=== PATIENT | female | born 1970 | race African-American/Black ===

== ENCOUNTER 2022-09-30 18:54 | Inpatient (IN) | payer OTHER ==
[~2022-09-30] VITALS: Ht 162.6 cm; Wt 81.8 kg
[2022-09-30] MEDS ORDERED: 0.9% SODIUM CHLORIDE 10 ML SYRINGE IVP PRN (20:15)
[2022-09-30] MEDS ORDERED: VANCOMYCIN 1GM/WATER(PEG/NADA) 200 ML IV ONE (20:15)
[2022-09-30] MEDS ORDERED: HYDROmorphone HCL 2 MG/ML SYRINGE IVP ONE (20:45)
[2022-09-30 20:48] LABS: BASOPHILS % (AUTO) 0.6 % (0.0-2.0); HEMATOCRIT 44.6 % (36-46); HEMOGLOBIN 14.9 g/dL (12.0-16.0); LYMPHOCYTES # (AUTO) 1.8 K/uL (1.0-4.8); LYMPHOCYTES % (AUTO) 19.8 % (22.0-44.0); MEAN CORPUSCULAR HEMOGLOBIN 30.4 pg (26.0-34.0); MEAN CORPUSCULAR HGB CONC 33.3 G/dL (31.0-37.0); MEAN CORPUSCULAR VOLUME 91 fL (80-100); MONOCYTES # (AUTO) 0.7 K/uL (0.1-1.0); MONOCYTES % (AUTO) 7.8 % (2.0-9.0); NEUTROPHILS # (AUTO) 6.4 K/uL (1.8-7.7); NEUTROPHILS % (AUTO) 69.8 % (40.0-70.0); PLATELET COUNT (AUTO) 199 K/uL (150-450); RED BLOOD CELL COUNT(AUTO) 4.89 MIL/uL (4.00-5.20); RED CELL DISTRIBUTION WIDTH 13.7 % (11.5-14.5)
[2022-09-30 20:59] LABS: ANION GAP 7 mmol/L (8-16); CALCIUM, TOTAL 8.7 mg/dL (8.8-10.5); CARBON DIOXIDE 28 mmol/L (22-29); CHLORIDE 105 mmol/L (98-107); CREATININE 0.69 mg/dL (0.60-1.30); GLUCOSE,RANDOM 94 mg/dL (70-110); POTASSIUM 3.8 mmol/L (3.5-5.1); SODIUM SERUM 140 mmol/L (136-145); UREA NITROGEN, BLOOD 12 mg/dL (7-18)
[2022-09-30 21:00] LABS: GLOMERULAR FILTR. RATE CALC > 60 mL/min (>60)
[2022-09-30] MEDS ORDERED: PIPERACILLIN/TAZO 3.375 GM/D5W 50 ML IV SCH (21:00)
[2022-09-30 21:04] LABS: ALANINE AMINOTRANSFERASE 36 U/L (12-78); ALBUMIN 3.5 g/dL (3.4-5.0); ALKALINE PHOSPHATASE 83 U/L (46-116); ASPARTATE AMINOTRANSFERASE 22 U/L (15-37); BILIRUBIN,TOTAL 0.3 mg/dL (0.1-1.0); TOTAL PROTEIN, SERUM 7.9 g/dL (6.4-8.2)
[2022-09-30 21:05] LABS: COVID AG,FIA SOURCE NASAL SWAB
[2022-09-30 21:08] LABS: LACTIC ACID 0.6 mmol/L (0.4-2.0)
[2022-09-30 21:16] LABS: C-REACTIVE PROTEIN QUANT 4.45 mg/dL (0.00-0.30)
[2022-09-30] MEDS ORDERED: ONDANSETRON HCL 4 MG/2 ML VIAL IVP PRN (21:45)
[2022-09-30] MEDS ORDERED: HYDROCODONE/ACETAMINOPHEN 5-325 MG TABLET PO PRN (21:45)
[2022-09-30] MEDS ORDERED: ACETAMINOPHEN 325 MG TABLET PO PRN (21:45)
[2022-09-30] MEDS: MORPHINE SULFATE 2 MG/ML SYRINGE IVP PRN (22:26)
[2022-09-30 22:52] LABS: ERYTHROCYTE SEDIMENTATION RATE 25 MM/HR (0-20)
[2022-09-30] MEDS: HEPARIN SODIUM,PORCINE 5,000 UNITS/ML VIAL SQ SCH (23:14)
[2022-10-01 00:10] VITALS: BP 150/94
[2022-10-01] MEDS ORDERED: SODIUM CHLORIDE 0.9% 500 ML IV ONE (00:36)
[2022-10-01] MEDS: PIPERACILLIN/TAZO 3.375 GM/D5W 50 ML IV SCH ×4 (01:18→18:06)
[2022-10-01 05:30] VITALS: BP 131/106
[2022-10-01 07:30] LABS: BASOPHILS % (AUTO) 0.9 % (0.0-2.0); EOSINOPHILS % (AUTO) 1.9 % (1.0-6.0); HEMATOCRIT 45.3 % (36-46); HEMOGLOBIN 15.5 g/dL (12.0-16.0); LYMPHOCYTES # (AUTO) 1.6 K/uL (1.0-4.8); LYMPHOCYTES % (AUTO) 19.6 % (22.0-44.0); MEAN CORPUSCULAR HGB CONC 34.3 G/dL (31.0-37.0); MEAN CORPUSCULAR VOLUME 91 fL (80-100); MONOCYTES # (AUTO) 0.7 K/uL (0.1-1.0); MONOCYTES % (AUTO) 8.5 % (2.0-9.0); NEUTROPHILS # (AUTO) 5.6 K/uL (1.8-7.7); NEUTROPHILS % (AUTO) 69.1 % (40.0-70.0); PLATELET COUNT (AUTO) 197 K/uL (150-450); RED BLOOD CELL COUNT(AUTO) 5.01 MIL/uL (4.00-5.20); RED CELL DISTRIBUTION WIDTH 13.7 % (11.5-14.5)
[2022-10-01 07:47] LABS: ANION GAP 10 mmol/L (8-16); CARBON DIOXIDE 25 mmol/L (22-29); CHLORIDE 104 mmol/L (98-107); CREATININE 0.68 mg/dL (0.60-1.30); GLUCOSE,RANDOM 114 mg/dL (70-110); POTASSIUM 4.1 mmol/L (3.5-5.1); SODIUM SERUM 139 mmol/L (136-145); UREA NITROGEN, BLOOD 9 mg/dL (7-18)
[2022-10-01 07:48] LABS: GLOMERULAR FILTR. RATE CALC > 60 mL/min (>60)
[2022-10-01 08:01] VITALS: BP 134/99
[2022-10-01] MEDS: DOCUSATE SODIUM 100 MG CAPSULE PO SCH ×2 (08:30→20:21)
[2022-10-01] MEDS: HEPARIN SODIUM,PORCINE 5,000 UNITS/ML VIAL SQ SCH ×3 (08:32→23:15)
[2022-10-01] MEDS ORDERED: NICOTINE 21 MG/24 HOUR PATCH TD SCH (12:15)
[2022-10-01] MEDS ORDERED: NICOTINE POLACRILEX 2 MG LOZENGE PO PRN (12:15)
[2022-10-01 15:51] VITALS: BP 161/94
[2022-10-01 19:25] VITALS: BP 139/100
[2022-10-02] MEDS: PIPERACILLIN/TAZO 3.375 GM/D5W 50 ML IV SCH ×2 (00:30→06:28)
[2022-10-02 03:16] VITALS: BP 166/92
[2022-10-02] MEDS: MORPHINE SULFATE 2 MG/ML SYRINGE IVP PRN (03:42)
[2022-10-02 06:20] VITALS: BP 189/113
[2022-10-02] MEDS ORDERED: AmLODIPine BESYLATE 5 MG TABLET PO ONE (06:45)
[2022-10-02 08:09] VITALS: BP 133/73
[2022-10-02] MEDS: HEPARIN SODIUM,PORCINE 5,000 UNITS/ML VIAL SQ SCH (08:27)
[2022-10-02] MEDS: DOCUSATE SODIUM 100 MG CAPSULE PO SCH (08:33)
[2022-10-02] MEDS ORDERED: AmLODIPine BESYLATE 5 MG TABLET PO SCH (09:00)
== END 2022-10-02 11:10 | disposition left against medical advice (07) | DRG 383 ==
LOC: EMS 18:57 → 6S 22:00
PROVIDERS: ADMIT Internal Medicine; ATTEND Internal Medicine
DX: L03.116 Cellulitis of left lower limb (principal); S91.302A Unspecified open wound, left foot, initial encounter; F14.10 Cocaine abuse, uncomplicated; T25.022A Burn of unspecified degree of left foot, initial encounter; F17.210 Nicotine dependence, cigarettes, uncomplicated; X08.8XXA Exposure to other specified smoke, fire and flames, initial encounter; Z20.822 Contact with and (suspected) exposure to COVID-19; X58.XXXA Exposure to other specified factors, initial encounter; Y93.89 Activity, other specified; Y92.89 Other specified places as the place of occurrence of the external cause; Y99.8 Other external cause status
CPT/HCPCS: 80048; 80053; 83605; 83735; 85025; 85651; 86140; 87040; 87070; 87205; 93926; 93971; 99285; J1170; J1644; J2270; J2543; J7040; Q9967

== ENCOUNTER 2022-12-05 05:53 | Emergency (ER) | payer OTHER ==
[~2022-12-05] VITALS: Ht 162.6 cm; Wt 81.8 kg
[2022-12-05 06:57] VITALS: BP 163/102
[2022-12-05] MEDS ORDERED: HYDROCHLOROTHIAZIDE 25 MG TABLET PO ONE (07:30)
[2022-12-05] MEDS ORDERED: HYDR25TA2 PO (13:24)
== END 2022-12-05 08:00 | disposition left against medical advice (07) ==
LOC: EMS 05:58
DX: I10 Essential (primary) hypertension (principal); F17.210 Nicotine dependence, cigarettes, uncomplicated; Z98.890 Other specified postprocedural states
CPT/HCPCS: 99283

== ENCOUNTER 2023-02-22 23:53 | Emergency (ER) | payer OTHER ==
[~2023-02-22] VITALS: Ht 162.6 cm; Wt 84.0 kg
[2023-02-22 23:53] VITALS: BP 158/98
[~2023-02-22 23:53] MED LIST: HYDR25TA2 PO
[2023-02-23] MEDS ORDERED: AMOX TR/POT CLAV 875 MG/125 MG TABLET PO ONE (00:15)
[2023-02-23] MEDS ORDERED: BACITRACIN 0.9 GM PACKET OINTMENT TP ONE (00:15)
[2023-02-23] MEDS ORDERED: ACETAMINOPHEN 500 MG TABLET PO ONE (00:15)
[2023-02-23] MEDS ORDERED: AMOX1TAB16 PO (01:08)
[2023-02-23] MEDS ORDERED: IBUP-1492 PO (01:08)
== END 2023-02-23 01:15 | disposition home or self-care (01) ==
LOC: EMS 23:53
DX: L03.011 Cellulitis of right finger (principal); I10 Essential (primary) hypertension; F17.210 Nicotine dependence, cigarettes, uncomplicated; F14.90 Cocaine use, unspecified, uncomplicated; Z98.890 Other specified postprocedural states
CPT/HCPCS: 10060; 99283

== ENCOUNTER 2024-09-21 14:06 | Emergency (ER) | payer MEDICAID, OTHER ==
[~2024-09-21] VITALS: Ht 162.6 cm; Wt 90.9 kg
[~2024-09-21 14:06] MED LIST changes: +AMOX-457 PO; +IBUP-1492 PO
[2024-09-21 14:17] VITALS: BP 112/79; PULSE 88; RESP 18; TEMP 98.7; O2SAT 97
[2024-09-21 14:26] LABS: COVID AG,FIA SOURCE NASAL SWAB
[2024-09-21] MEDS ORDERED: ACYC-138 PO (14:54)
[2024-09-21] MEDS ORDERED: BENZ-227 PO (14:54)
[2024-09-21 14:56] LABS: SARS-COV2 (COVID) ANTIGEN,FIA Negative (Negative)
[2024-09-21 14:57] LABS: INFLUENZA TYPE A NEGATIVE FOR TYPE A (NEGATIVE); INFLUENZA TYPE B NEGATIVE FOR TYPE B (NEGATIVE)
[2024-09-21 15:16] LABS: RAPID GROUP A STREP NEGATIVE (NEGATIVE)
[2024-09-21] MEDS: TraMADol HCL 50 MG TABLET PO ONE (15:32)
== END 2024-09-21 15:34 | disposition home or self-care (01) ==
LOC: EMS 14:06
DX: J02.8 Acute pharyngitis due to other specified organisms (principal); B97.89 Other viral agents as the cause of diseases classified elsewhere; R49.0 Dysphonia; K13.79 Other lesions of oral mucosa; I10 Essential (primary) hypertension; F17.210 Nicotine dependence, cigarettes, uncomplicated; Z79.899 Other long term (current) drug therapy; Z20.822 Contact with and (suspected) exposure to COVID-19
CPT/HCPCS: 87430; 87804; 99283